=== PATIENT | female | born 1990 | race Asian ===

== ENCOUNTER 2017-03-27 11:11 | Emergency (ER) | payer OTHER ==
[2017-03-27 11:20] VITALS: BP 110/87; PULSE 96; RESP 15; TEMP 98.6; O2SAT 96
--- NOTE | 2017-03-27 11:56 | EDPHY ---
H & P Stated Complaint: n/v X 2 DAYS Time Seen by Provider: 03/27/17 11:35 HPI/ROS: Chief complaint: Cold symptoms History of present illness: This is a 26-year-old female who presents to the emergency department for cold symptoms. She reports she has had symptoms for the last 3-4 days. She reports runny nose, nasal congestion, slight sore throat , cough, nausea and vomiting and some body aches. She denies precipitating factors. She denies alleviating factors. She denies other associated signs or symptoms including no fevers, no abdominal pain, no diarrhea or constipation, no abnormal vaginal discharge, discomfort, no urinary symptoms. Review of systems: A 10 point review of systems was obtained and other than described above was negative - Personal History LMP (Females 10-55): Now Current Tetanus/Diphtheria Vaccine: Yes Current Tetanus Diphtheria and Acellular Pertussis (TDAP): Yes - Medical/Surgical History Hx Asthma: No Hx Chronic Respiratory Disease: No Hx Diabetes: No Hx Cardiac Disease: No Hx Renal Disease: No Hx Cirrhosis: No Hx Alcoholism: No Hx HIV/AIDS: No Hx Splenectomy or Spleen Trauma: No Other PMH: DEPRESSION - Social History Smoking Status: Never smoked - Physical Exam Exam: General Appearance: Alert, nontoxic. Eyes: Pupils equal and round no pallor or injection. ENT, Mouth: Tympanic membranes, external auditory canals, external ears and surrounding soft tissue including over the mastoids are unremarkable. Nasopharynx is not injected. There is no rhinorrhea. Oropharynx is mildly injected. There is no edema. There is no exudate. There is no asymmetry. The uvula is midline. No elevation of the tongue. There is no hoarseness, no drooling, no trismus, no stridor. Respiratory: There are no retractions, lungs are clear to auscultation. Cardiovascular: Regular rate and rhythm. Gastrointestinal: Abdomen is soft and non tender, no masses, bowel sounds normal. Neurological: Alert and oriented x4. Strength and sensation intact and symmetrical. No meningismus. Skin: Warm and dry, no rashes. Musculoskeletal: Neck is supple non tender. Extremities are symmetrical, full range of motion. Psychiatric: Patient is oriented X 3, there is no agitation. Constitutional: Initial Vital Signs Temperature (C) 37.0 C 03/27/17 11:18 Heart Rate 96 03/27/17 11:18 Respiratory Rate 15 03/27/17 11:18 Blood Pressure 110/87 H 03/27/17 11:18 O2 Sat (%) 96 03/27/17 11:18 O2 Delivery Mode Room Air Allergies/Adverse Reactions: No Known Allergies Allergy (Unverified 03/27/17 11:16) Home Medications: Medication Instructions Recorded Kristydarrenmayraangeltio 03/27/17 Medical Decision Making ED Course/Re-evaluation: Patient seen under the supervision of my secondary supervising physician Dr. Bandar Sorensen. Patient presents to the emergency department for cold symptoms with nausea and vomiting. On presentation she is nontoxic. Afebrile and vital signs are stable. Physical exam is unremarkable including a benign abdominal exam. I believe this most likely represents a viral syndrome. I do not believe further evaluation or inpatient management is warranted. Patient will be discharged home. Home care is discussed. She is to follow up with a primary care doctor this week for recheck. Return precautions are given. Patient voiced understanding and agreement with plan. Differential Diagnosis: Included but not limited to URI, bronchitis, pneumonia, influenza gastritis, gastroenteritis - Data Points Medications Given: Discontinued Medications Ondansetron HCl (Zofran Odt 4 Mg Prepack#2) 1 btl TAKEHOME EDNOW ONE Stop: 03/27/17 11:58 Last Admin: 03/27/17 12:10 Dose: 1 btl Departure - Departure Disposition: Home, Routine, Self-Care Clinical Impression: Viral syndrome Condition: Good Instructions: Ondansetron (By mouth), Viral Syndrome (ED) Additional Instructions: Follow-up with a primary care doctor this week for recheck If symptoms worsen or new symptoms develop return to the emergency room for recheck Referrals: NONE *PRIMARY CARE P,. [Primary Care Provider] - As per Instructions Evaristo Salamanca DO [Medical Doctor] - As per Instructions [facility],. [Clinic] - As per Instructions
[2017-03-27] MEDS ORDERED: ONDANSETRON 4MG PREPACK#2 BTL TAKEHOME ONE (11:57)
== END 2017-03-27 12:22 | disposition home or self-care (01) ==
DX: B34.9 Viral infection, unspecified (principal)